=== PATIENT | male | born 1955 | race Caucasian/White ===

== ENCOUNTER 2020-06-07 23:38 | Inpatient (IN) ==
[2020-06-08 00:37] LABS: Albumin 2.5 G/DL (3.4-5.0); Bilirubin,Total 0.4 MG/DL (0.2-1.0); Calcium 7.8 MG/DL (8.5-10.1); Osmolality,Calculated 269.2 MOS/KG (273-304); Potassium 4.1 MMOL/L (3.5-5.1); Total Protein 7.8 G/DL (6.4-8.3)
[2020-06-08 00:40] LABS: Basophils % 0.3 % (0.0-0.8); Immature Granulocytes % 1.4 %; Immature Granulocytes Absolute 0.12 #; Lymphocytes # 0.7 10*3/uL (1.4-4.0); Lymphocytes % 8.4 % (21.2-54.2); Mean Corpuscular HGB Conc 30.6 GM/DL (32-36); Mean Corpuscular Volume 79.1 FL (87-102); Mean Platelet Volume 9.5 FL (9.6-12.0); Monocytes % 0.9 % (1.7-12.7); Platelet Count 271 T/CUMM (130-400); Red Blood Count 4.55 MC/CUMM (3.8-5.5); Red Cell Distribution Width 14.8 % (9.3-17.3); White Blood Count 8.9 T/CUMM (4-12)
[2020-06-08] MEDS ORDERED: MORPHINE 4 MG/1 ML VIAL IV STA (02:00)
[2020-06-08] MEDS ORDERED: MORPHINE 4 MG/1 ML VIAL ONE (02:01)
[2020-06-08] MEDS ORDERED: NITROGLYCERIN SL 0.4 MG TABLET SL PRN (05:13)
[2020-06-08] MEDS ORDERED: ONDANSETRON 4 MG/2 ML VIAL IV PRN (05:14)
[2020-06-08] MEDS ORDERED: MORPHINE 4 MG/1 ML VIAL IV PRN (05:14)
[2020-06-08] MEDS ORDERED: DEXTROSE 50% 25 GM/50 ML VIAL IV PRN (05:14)
[2020-06-08] MEDS ORDERED: DOCUSATE SODIUM 100 MG CAPSULE PO PRN (05:14)
[2020-06-08] MEDS ORDERED: ACETAMINOPHEN 325 MG TABLET PO PRN (05:14)
[2020-06-08] MEDS ORDERED: GLUCAGON 1 MG VIAL IM PRN (05:14)
[2020-06-08] MEDS ORDERED: hydrALAZINE 20 MG/1 ML VIAL IV PRN (05:14)
[2020-06-08] MEDS ORDERED: HEPARIN/NACL 0.9% 2 UNITS/ML 1,000 ML IV ONE (06:01)
[2020-06-08] MEDS ORDERED: LIDOCAINE 1% 20 ML VIAL ONE (06:01)
[2020-06-08] MEDS ORDERED: DIAZEPAM 5 MG TABLET PO ONE (06:05)
[2020-06-08] MEDS ORDERED: diphenhydrAMINE CAP 25 MG CAPSULE PO ONE (06:05)
[2020-06-08] MEDS ORDERED: MIDAZOLAM 2 MG/2 ML VIAL ONE ×2 (06:13→06:48)
[2020-06-08] MEDS ORDERED: fentaNYL 100 MCG/2 ML VIAL ONE (06:13)
[2020-06-08] MEDS ORDERED: SODIUM CHLORIDE 0.9% 1,000 ML IV SCH (06:30)
[2020-06-08] MEDS ORDERED: HEPARIN 5,000 UNIT/1 ML VIAL ONE (06:38)
[2020-06-08] MEDS ORDERED: hydrALAZINE 20 MG/1 ML VIAL ONE (07:00)
[2020-06-08] MEDS ORDERED: CLOPIDOGREL 300 MG TABLET ONE (07:04)
[2020-06-08 07:07] LABS: Risk Ratio 3.97; Thyroid Stimulating Hormone 0.227 uIU/ml (0.358-3.74); VLDL CHOLESTEROL 16.4 MG/DL
[2020-06-08] MEDS ORDERED: ceFAZolin 1,000 MG VIAL ONE (07:13)
[2020-06-08] MEDS: ASPIRIN EC 81 MG TABLET PO SCH (08:36)
[2020-06-08] MEDS: carvediloL 6.25 MG TABLET PO SCH ×2 (08:36→20:38)
[2020-06-08] MEDS: NICOTINE 21 MG/24 HR PATCH TRANSDERM SCH (08:36)
[2020-06-08] MEDS: LOSARTAN 25 MG TABLET PO SCH (08:36)
[2020-06-08] MEDS ORDERED: CLOPIDOGREL 75 MG TABLET PO SCH (09:00)
[2020-06-08] MEDS ORDERED: ENOXAPARIN 120 MG/0.8 ML SYRINGE SUBCUT SCH (10:00)
[2020-06-09 05:35] LABS: Basophils % 0.4 % (0.0-0.8); Eosinophils % 0.3 % (0.00-10.9); Hematocrit 31.5 VOL% (42.0-52.0); Hemoglobin 9.6 GM/DL (14.0-18.0); Immature Granulocytes % 0.3 %; Immature Granulocytes Absolute 0.02 #; Lymphocytes # 1.8 10*3/uL (1.4-4.0); Lymphocytes % 26.7 % (21.2-54.2); Mean Corpuscular HGB Conc 30.5 GM/DL (32-36); Mean Corpuscular Volume 80.2 FL (87-102); Mean Platelet Volume 9.6 FL (9.6-12.0); Monocytes % 5.2 % (1.7-12.7); Neutrophils % 67.1 % (38.7-73.9); Platelet Count 210 T/CUMM (130-400); Red Blood Count 3.93 MC/CUMM (3.8-5.5); Red Cell Distribution Width 14.7 % (9.3-17.3); White Blood Count 6.7 T/CUMM (4-12)
[2020-06-09 05:55] LABS: Calcium 8.3 MG/DL (8.5-10.1); Osmolality,Calculated 272.1 MOS/KG (273-304)
[2020-06-09 06:02] LABS: Alanine Aminotransferase 14 U/L (16-61); Albumin 2.1 G/DL (3.4-5.0); Alkaline Phosphatase 82 U/L (45-117); Aspartate Amino Transferase 30 U/L (0-37); Bilirubin,Total < 0.39 MG/DL (0.2-1.0); Blood Urea Nitrogen 17 MG/DL (7-18); Calcium 8.1 MG/DL (8.5-10.1); Carbon Dioxide 25 MMOL/L (21-32); Estimated Glom Filtration Rate 105 ML/MIN; Glucose 124 MG/DL (74-106); Osmolality,Calculated 272.1 MOS/KG (273-304); Potassium 4.1 MMOL/L (3.5-5.1); Sodium 135 MMOL/L (136-145)
[2020-06-09 06:08] LABS: Free T4 (Free Thyroxine) 1.06 NG/DL (0.76-1.46)
[2020-06-09] MEDS: LOSARTAN 25 MG TABLET PO SCH (08:44)
[2020-06-09] MEDS: NICOTINE 21 MG/24 HR PATCH TRANSDERM SCH (08:44)
[2020-06-09] MEDS: ASPIRIN EC 81 MG TABLET PO SCH (08:44)
[2020-06-09] MEDS: carvediloL 6.25 MG TABLET PO SCH (08:44)
[2020-06-09] MEDS ORDERED: CLOPIDOGREL 75 MG TABLET PO SCH (09:00)
[2020-06-09 09:49] LABS: Basophils % 0.5 % (0.0-0.8); Eosinophils % 0.3 % (0.00-10.9); Hematocrit 31.5 VOL% (42.0-52.0); Hemoglobin 9.4 GM/DL (14.0-18.0); Immature Granulocytes % 0.5 %; Immature Granulocytes Absolute 0.03 #; Lymphocytes # 1.4 10*3/uL (1.4-4.0); Lymphocytes % 21.3 % (21.2-54.2); Mean Corpuscular HGB Conc 29.8 GM/DL (32-36); Mean Corpuscular Volume 80.8 FL (87-102); Monocytes % 3.6 % (1.7-12.7); Neutrophils % 73.8 % (38.7-73.9); Platelet Count 199 T/CUMM (130-400); White Blood Count 6.6 T/CUMM (4-12)
[2020-06-09 12:11] VITALS: BP 101/45
[2020-06-09] MEDS ORDERED: ATORVASTATIN 80 MG TABLET PO SCH (21:00)
== END 2020-06-09 15:30 | disposition home or self-care (01) | DRG 246 ==
LOC: N.EDINP 23:38 → N.ED 23:38 → N.EDINP 06-08 06:06 → N.TELEN 06-08 07:18
PROVIDERS: ADMIT Internal Medicine; ATTEND Internal Medicine